=== PATIENT | female | born 1965 | race Caucasian/White ===

== ENCOUNTER 2021-12-19 17:43 | Inpatient (IN) | payer BC, MEDICARE ==
[~2021-12-19] VITALS: Ht 160 cm; Wt 88.6 kg
[~2021-12-19 17:43] MED LIST: AMIT-189 PO; BAC15O TP; CLIN-91 PO; DIAZ5TAB PO; FLUO20CA39 PO; GABA800T11 PO; HYDR-4353 PO; INSULIN REGULAR SQ; LANTUS SQ; Levofloxacin PO; METF-436 PO; METH-603 PO; MSC30T PO
[2021-12-19 19:18] LABS: BASOPHILS % (AUTO) 0.2 % (0-1); EOSINOPHILS % (AUTO) 0.6 % (0-6); HEMATOCRIT 31.2 % (35.0-45.0); HEMOGLOBIN 9.5 g/dl (12.0-16.0); LYMPHOCYTES # (AUTO) 1.6 X10'3 (1.1-4.8); LYMPHOCYTES % (AUTO) 19.2 % (21-51); MEAN CORPUSCULAR HEMOGLOBIN 19.5 PG (27.0-31.0); MEAN CORPUSCULAR HGB CONC 30.5 g/dL (33.0-36.5); MEAN PLATELET VOLUME 6.9 FL (7.4-10.4); MONOCYTES # (AUTO) 0.6 X10'3 (0-0.9); MONOCYTES % (AUTO) 7.2 % (2-12); NEUTROPHILS # (AUTO) 5.9 X10'3 (1.8-7.7); NEUTROPHILS % (AUTO) 72.8 % (42-75); PLATELET COUNT 362 X10'3 (140-440); RED BLOOD COUNT 4.88 X10'6 (4.20-5.60); WHITE BLOOD COUNT 8.1 X10'3 (4.5-11.0)
[2021-12-19 19:32] LABS: ALANINE AMINOTRANSFERASE 17 U/L (12-78); ALBUMIN 3.2 G/DL (3.4-5.0); ALBUMIN/GLOBULIN RATIO 0.6 (1.1-1.5); ALKALINE PHOSPHATASE 142 IU/L (46-116); ANION GAP 11 (8-16); ASPARTATE AMINO TRANSFERASE 8 U/L (10-37); BILIRUBIN,TOTAL 0.2 MG/DL (0.1-1.0); BLOOD UREA NITROGEN 15 MG/DL (7-18); BUN/CREATININE RATIO 25.4 (6.6-38.0); CHLORIDE 101 MMOL/L (99-107); CREATININE 0.59 MG/DL (0.40-0.90); GLUCOSE 256 MG/DL (70-104); POTASSIUM 4.2 MMOL/L (3.5-5.1); SODIUM 138 MMOL/L (135-145); TOTAL CARBON DIOXIDE 26.3 MMOL/L (24-32); TOTAL PROTEIN 8.4 G/DL (6.4-8.2); eGFR > 90 ML/MIN
[2021-12-19 20:31] LABS: PLATELET ESTIMATE NORMAL
[2021-12-19 20:32] LABS: ANISOCYTOSIS 1+; MICROCYTOSIS 2+
[2021-12-19 20:34] LABS: ELLIPTOCYTES 1+; HYPOCHROMASIA 1+
[2021-12-19] MEDS ORDERED: morphine 4 MG/ML inj SYRINge IV ONE (22:45)
[2021-12-19] MEDS ORDERED: LIDOcaine 1%/PF 5ML 10 MG/ML VIAL IJ ONE (22:50)
[2021-12-20] MEDS ORDERED: vancomycin/NS 1 GM ADD-VANTAGE 250 ML IV ONE (02:00)
[2021-12-20] MEDS ORDERED: cefepime 1GM/NS ADD-VANTAGE 100 ML IV ONE (02:00)
[2021-12-20] MEDS ORDERED: LORazepam 1 MG tablet PO ONE (02:25)
[2021-12-20] MEDS ORDERED: HYDROcodone/acetaminophen 10/325mg tab PO ONE ×2 (02:25→08:50)
--- NOTE | 2021-12-20 02:50 | NUR ---
PO MEDS X2 GIVEN
[2021-12-20] MEDS ORDERED: ondansetron/PF 4mg/2ml inj IV PRN (08:05)
[2021-12-20] MEDS ORDERED: mag hydrox/Alum hydrox/simeth 30ml oral suspension PO PRN (08:05)
[2021-12-20] MEDS ORDERED: potassium CL 10mEq/100ml bag 100 ML IV PRN (08:05)
[2021-12-20] MEDS ORDERED: magnesium Cl slow-release 64mg tablet PO PRN (08:05)
[2021-12-20] MEDS ORDERED: magnesium 4gm in 100ml NS 100 ML IV PRN (08:05)
[2021-12-20] MEDS ORDERED: magnesium hydroxide 30ml (MOM) UD suspension PO PRN (08:05)
[2021-12-20] MEDS ORDERED: acetaminophen 325mg tablet PO PRN (08:05)
[2021-12-20] MEDS ORDERED: POTASSIUM BICARB 20meq eff tab 20 MEQ TABLET.EFF PO PRN ×2 (08:05)
[2021-12-20] MEDS ORDERED: magnesium 2GM in 50ml NS 50 ML IV PRN (08:05)
[2021-12-20 09:12] LABS: MAGNESIUM 1.8 MG/DL (1.5-2.4); POTASSIUM 3.7 MMOL/L (3.5-5.1)
[2021-12-20] MEDS ORDERED: methadone 10mg tablet PO ONE (10:00)
[2021-12-20] MEDS: CefTRIAXone 2gm/NS 100ml IVPB 100 ML IV SCH (10:07)
[2021-12-20] MEDS: normal saline 1000ml 1,000 ML IV SCH ×2 (10:07→20:10)
--- NOTE | 2021-12-20 10:44 | NUR ---
PATIENT BACK TO BED FROM BATHROOM, ABLE TO AMBULATE FROM WHEELCHAIR IN VEGA TO BED INDEPENDENTLY.
--- NOTE | 2021-12-20 10:48 | NUR ---
PATIENT IN BED YELLING, CRYING, STATING "IT HURTS", PAGE SENT TO DR HUANG.
[2021-12-20] MEDS ORDERED: morphine 2 MG/ML inj. syringe IV PRN (11:00)
[2021-12-20] MEDS ORDERED: FLUO40CA PO (12:41)
[2021-12-20] MEDS ORDERED: IBUP-1986 PO (12:45)
[2021-12-20] MEDS ORDERED: LORA-269 PO (12:45)
[2021-12-20] MEDS ORDERED: ONDA8TAB13 PO (12:45)
[2021-12-20] MEDS ORDERED: DOXY-1 PO (12:45)
[2021-12-20] MEDS ORDERED: PHEN37.58 PO (12:45)
[2021-12-20] MEDS ORDERED: non-formulary drug (Ondansetron 8mg ODT*** (Ondansetron Odt) 1 TAB) PO PRN (13:10)
[2021-12-20] MEDS: gabapentin 400mg capsule PO SCH ×3 (15:33→20:35)
[2021-12-20] MEDS: vancomycin/NS 1 GM ADD-VANTAGE 250 ML IV SCH (15:34)
[2021-12-20] MEDS ORDERED: methadone 10mg tablet PO SCH (17:00)
[2021-12-20] MEDS: ibuprofen tablet 400 MG TABLET PO SCH (17:30)
[2021-12-20] MEDS: K and/or MAG REPLACEMENT MC SCH (20:00)
[2021-12-20] MEDS: metFORMIN 500mg tablet PO SCH (20:34)
[2021-12-20] MEDS: docusate sod 100mg capsule PO SCH (20:35)
[2021-12-20 22:00] VITALS: BP 144/62
[2021-12-21] MEDS: vancomycin/NS 1 GM ADD-VANTAGE 250 ML IV SCH (02:39)
[2021-12-21 06:00] VITALS: BP 134/53
[2021-12-21 06:36] LABS: ALBUMIN 2.5 G/DL (3.4-5.0); ANION GAP 9 (8-16); BLOOD UREA NITROGEN 10 MG/DL (7-18); BUN/CREATININE RATIO 21.3 (6.6-38.0); CALCIUM 8.6 MG/DL (8.5-10.1); CHLORIDE 105 MMOL/L (99-107); CREATININE 0.47 MG/DL (0.40-0.90); GLUCOSE 185 MG/DL (70-104); MAGNESIUM 1.7 MG/DL (1.5-2.4); POTASSIUM 3.9 MMOL/L (3.5-5.1); SODIUM 139 MMOL/L (135-145); TOTAL CARBON DIOXIDE 25.5 MMOL/L (24-32); eGFR > 90 ML/MIN
[2021-12-21 06:37] LABS: BASOPHILS % (AUTO) 0.4 % (0-1); EOSINOPHILS # (AUTO) 0.1 X10'3 (0-0.9); EOSINOPHILS % (AUTO) 1.8 % (0-6); HEMATOCRIT 25.7 % (35.0-45.0); HEMOGLOBIN 7.8 g/dl (12.0-16.0); LYMPHOCYTES % (AUTO) 22.5 % (21-51); MEAN CORPUSCULAR HEMOGLOBIN 18.9 PG (27.0-31.0); MEAN CORPUSCULAR HGB CONC 30.2 g/dL (33.0-36.5); MEAN CORPUSCULAR VOLUME 62.7 FL (78-98); MEAN PLATELET VOLUME 6.6 FL (7.4-10.4); MONOCYTES # (AUTO) 0.4 X10'3 (0-0.9); MONOCYTES % (AUTO) 9.5 % (2-12); NEUTROPHILS % (AUTO) 65.8 % (42-75); PLATELET COUNT 260 X10'3 (140-440); RED BLOOD COUNT 4.09 X10'6 (4.20-5.60); RED CELL DISTRIBUTION WIDTH 17.7 % (11.5-14.5); WHITE BLOOD COUNT 4.5 X10'3 (4.5-11.0)
--- NOTE | 2021-12-21 06:50 | NUR ---
Problems reprioritized. Patient report given, questions answered & plan of care reviewed with ILDA WILSON.
[2021-12-21 07:00] LABS: HEMOGLOBIN A1C 7.8 % (4.5-6.2)
[2021-12-21] MEDS: PHENTERMINE 37.5 MG PO SCH (08:00)
[2021-12-21] MEDS: K and/or MAG REPLACEMENT MC SCH ×2 (08:00→20:00)
[2021-12-21] MEDS: methadone 10mg tablet PO SCH (08:15)
[2021-12-21] MEDS: FLUoxetine 20mg capsule PO SCH (08:16)
[2021-12-21] MEDS: ibuprofen tablet 400 MG TABLET PO SCH ×2 (08:16→18:41)
[2021-12-21] MEDS: gabapentin 400mg capsule PO SCH ×4 (08:16→20:04)
[2021-12-21] MEDS: metFORMIN 500mg tablet PO SCH ×2 (08:16→20:03)
[2021-12-21] MEDS: docusate sod 100mg capsule PO SCH ×2 (08:17→20:03)
[2021-12-21] MEDS: enoxaparin 40mg/0.4ml syringe SUBCUT SCH (08:18)
[2021-12-21] MEDS: normal saline 1000ml 1,000 ML IV SCH ×2 (09:08→14:05)
[2021-12-21] MEDS: CefTRIAXone 2gm/NS 100ml IVPB 100 ML IV SCH (09:14)
[2021-12-21] MEDS ORDERED: DEXTROSE 15 GM of carb/4 tabs (each vial/BOTTLE has 4 tablets) PO PRN ×2 (09:35)
[2021-12-21] MEDS ORDERED: dextrose 50%-water 50ml dispensing syringe IV PRN ×2 (09:35)
[2021-12-21] MEDS ORDERED: glucagon, human recombinant 1mg kit SUBCUT PRN (09:35)
[2021-12-21] MEDS ORDERED: LORazepam 1 MG tablet PO PRN (09:35)
[2021-12-21] MEDS ORDERED: MESSAGE TO PHARMACY PO ONE (09:35)
[2021-12-21 10:00] VITALS: BP 130/60
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
[2021-12-21] MEDS ORDERED: MESSAGE TO NURSING IV SCH (14:30)
[2021-12-21] MEDS ORDERED: vitamin A & D ointment-NF 1 APPLIC TUBE TP PRN (15:05)
[2021-12-21 18:00] VITALS: BP 146/72
--- NOTE | 2021-12-21 18:09 | NUR ---
PICC NURSE NOT AVAILABLE TODAY, PAGE IN THE AM. Addendum: 12/21/21 at 1810 by Julissa Oneill RN Amended: Links added.
[2021-12-21] MEDS: vancomycin 1,500 MG in NS 300ml IV soln IV SCH (18:28)
--- NOTE | 2021-12-21 18:32 | NUR ---
REPORT TO TYLER GONSALES
[2021-12-21] MEDS: insulin glargine (Lantus) pen - multi-dose SQ SCH (21:00)
[2021-12-21 22:00] VITALS: BP 153/67
[2021-12-21] MEDS: LORazepam 1 MG tablet PO PRN (22:27)
[2021-12-21] MEDS ORDERED: bisacodyl 10mg suppository rectal RC PRN (23:10)
[2021-12-22] MEDS: normal saline 1000ml 1,000 ML IV SCH ×3 (00:05→20:28)
[2021-12-22] MEDS: vancomycin 1,500 MG in NS 300ml IV soln IV SCH ×2 (04:05→16:29)
[2021-12-22 06:00] VITALS: BP 131/48
[2021-12-22 06:04] LABS: BASOPHILS % (AUTO) 0.5 % (0-1); EOSINOPHILS # (AUTO) 0.1 X10'3 (0-0.9); EOSINOPHILS % (AUTO) 1.9 % (0-6); HEMATOCRIT 24.8 % (35.0-45.0); HEMOGLOBIN 7.4 g/dl (12.0-16.0); LYMPHOCYTES # (AUTO) 0.7 X10'3 (1.1-4.8); MEAN CORPUSCULAR HEMOGLOBIN 18.9 PG (27.0-31.0); MEAN CORPUSCULAR HGB CONC 29.9 g/dL (33.0-36.5); MEAN CORPUSCULAR VOLUME 63.3 FL (78-98); MEAN PLATELET VOLUME 6.6 FL (7.4-10.4); MONOCYTES # (AUTO) 0.3 X10'3 (0-0.9); MONOCYTES % (AUTO) 12.2 % (2-12); NEUTROPHILS # (AUTO) 1.7 X10'3 (1.8-7.7); NEUTROPHILS % (AUTO) 60.4 % (42-75); PLATELET COUNT 237 X10'3 (140-440); RED BLOOD COUNT 3.92 X10'6 (4.20-5.60); RED CELL DISTRIBUTION WIDTH 17.7 % (11.5-14.5); WHITE BLOOD COUNT 2.8 X10'3 (4.5-11.0)
[2021-12-22 06:15] LABS: ALBUMIN 2.3 G/DL (3.4-5.0); ANION GAP 4 (8-16); BLOOD UREA NITROGEN 10 MG/DL (7-18); BUN/CREATININE RATIO 18.5 (6.6-38.0); CHLORIDE 107 MMOL/L (99-107); CREATININE 0.54 MG/DL (0.40-0.90); GLUCOSE 241 MG/DL (70-104); MAGNESIUM 1.6 MG/DL (1.5-2.4); SODIUM 139 MMOL/L (135-145); TOTAL CARBON DIOXIDE 28.5 MMOL/L (24-32); eGFR > 90 ML/MIN
[2021-12-22 06:42] LABS: PLATELET ESTIMATE NORMAL; TOTAL CELLS COUNTED 100
[2021-12-22 06:43] LABS: ANISOCYTOSIS 1+; MICROCYTOSIS 1+
--- NOTE | 2021-12-22 07:05 | NUR ---
Patient in room ORTHO 4009. I have received report from ILDA Miller and had the opportunity to ask questions and assume patient care.
[2021-12-22] MEDS: ondansetron 4mg rapidly disintigrating tab PO PRN ×2 (07:45→21:20)
[2021-12-22] MEDS: PHENTERMINE 37.5 MG PO SCH (08:00)
[2021-12-22] MEDS: K and/or MAG REPLACEMENT MC SCH ×2 (08:00→20:00)
[2021-12-22] MEDS: methadone 10mg tablet PO SCH (08:51)
[2021-12-22] MEDS: FLUoxetine 20mg capsule PO SCH (08:52)
[2021-12-22] MEDS: ibuprofen tablet 400 MG TABLET PO SCH ×2 (08:52→16:29)
[2021-12-22] MEDS: CefTRIAXone 2gm/NS 100ml IVPB 100 ML IV SCH (08:52)
[2021-12-22] MEDS: gabapentin 400mg capsule PO SCH ×4 (08:52→20:26)
[2021-12-22] MEDS: docusate sod 100mg capsule PO SCH ×2 (08:52→20:26)
[2021-12-22] MEDS: metFORMIN 500mg tablet PO SCH ×2 (08:52→20:00)
[2021-12-22] MEDS: enoxaparin 40mg/0.4ml syringe SUBCUT SCH (08:53)
--- NOTE | 2021-12-22 09:12 | NUR ---
F/u 12/22: Pt has L gerber abscess otherwise skin intact per [facility] note. Will monitor for nutrition intervention needs. Addendum: 12/22/21 at [address] Amended: Links added.
--- NOTE | 2021-12-22 09:19 | NUR ---
PICC NOTE: Spoke with Eliza bedside RN for the patient who stated that the patient is anticipated to go home on IV ABX and at this time she has a working IV that is sufficient for her needs during this stay. Patient will not be discharged today therefore we will hold off on PICC placement for today due to limited availability of PICC coverage. Informed the nurse to please page/call if there needs change throughout the course of the day.
[2021-12-22 10:00] VITALS: BP 141/63
[2021-12-22] MEDS: LORazepam 1 MG tablet PO PRN ×2 (10:28→22:51)
[2021-12-22] MEDS: insulin Lispro (HumaLOG) vial - multi-dose SQ SCH (13:17)
--- NOTE | 2021-12-22 15:40 | NUR ---
Wound care provided as prescribed. The wound had purulent drainage and it was packed and dressed as indicated.
[2021-12-22 18:00] VITALS: BP 152/80
--- NOTE | 2021-12-22 18:47 | NUR ---
Problems reprioritized. Patient report given, questions answered & plan of care reviewed with ILDA Miller.
[2021-12-22 22:00] VITALS: BP 158/52
--- NOTE | 2021-12-22 23:00 | NUR ---
Did not check pm glu until 2300 because pt ordered food for a late dinner from [employer] and wanted to space out the accu-check a bit from the meal.
[2021-12-22] MEDS: insulin glargine (Lantus) pen - multi-dose SQ SCH (23:28)
--- NOTE | 2021-12-23 | NUR ---
Pt pm accu-check was 254. She has met protocol. Pt declined her metformin and the 1u of short acting insulin. She received the long acting lantus. Will monitor and tell day RN to talk to Dr flores:metformin use vs insulin protocol.
[2021-12-23] MEDS: MESSAGE TO NURSING IV SCH (03:30)
[2021-12-23] MEDS: vancomycin 1,500 MG in NS 300ml IV soln IV SCH (03:58)
[2021-12-23 04:01] LABS: BASOPHILS % (AUTO) 0.2 % (0-1); EOSINOPHILS # (AUTO) 0.1 X10'3 (0-0.9); EOSINOPHILS % (AUTO) 2.2 % (0-6); HEMOGLOBIN 7.1 g/dl (12.0-16.0); LYMPHOCYTES # (AUTO) 1.2 X10'3 (1.1-4.8); MEAN CORPUSCULAR HEMOGLOBIN 18.8 PG (27.0-31.0); MEAN CORPUSCULAR HGB CONC 29.8 g/dL (33.0-36.5); MEAN CORPUSCULAR VOLUME 63.2 FL (78-98); MEAN PLATELET VOLUME 6.5 FL (7.4-10.4); MONOCYTES # (AUTO) 0.3 X10'3 (0-0.9); MONOCYTES % (AUTO) 10.3 % (2-12); NEUTROPHILS # (AUTO) 1.4 X10'3 (1.8-7.7); NEUTROPHILS % (AUTO) 48.3 % (42-75); PLATELET COUNT 232 X10'3 (140-440); RED CELL DISTRIBUTION WIDTH 17.8 % (11.5-14.5)
[2021-12-23 04:11] LABS: ALBUMIN 2.4 G/DL (3.4-5.0); ANION GAP 6 (8-16); BLOOD UREA NITROGEN 8 MG/DL (7-18); CALCIUM 8.5 MG/DL (8.5-10.1); CHLORIDE 108 MMOL/L (99-107); GLUCOSE 206 MG/DL (70-104); MAGNESIUM 1.7 MG/DL (1.5-2.4); POTASSIUM 4.1 MMOL/L (3.5-5.1); SODIUM 142 MMOL/L (135-145); VANCOMYCIN,TROUGH 12.5 UG/ML (6.0-14.0); eGFR > 90 ML/MIN
[2021-12-23 05:56] LABS: PLATELET ESTIMATE NORMAL
[2021-12-23 05:57] LABS: ANISOCYTOSIS 1+; ELLIPTOCYTES FEW; MICROCYTOSIS 2+
[2021-12-23 06:00] VITALS: BP 170/69
--- NOTE | 2021-12-23 06:34 | NUR ---
Patient in room ORTHO 4009. I have received report from ILDA Miller and had the opportunity to ask questions and assume patient care.
--- NOTE | 2021-12-23 07:15 | NUR ---
rechecked the patient's blood pressure BP 156/77, HR 64
[2021-12-23] MEDS: normal saline 1000ml 1,000 ML IV SCH (07:17)
[2021-12-23] MEDS: gabapentin 400mg capsule PO SCH ×4 (07:18→20:20)
[2021-12-23] MEDS: methadone 10mg tablet PO SCH (07:18)
[2021-12-23] MEDS: ibuprofen tablet 400 MG TABLET PO SCH ×2 (07:18→17:20)
[2021-12-23] MEDS: docusate sod 100mg capsule PO SCH ×2 (07:18→20:19)
[2021-12-23] MEDS: FLUoxetine 20mg capsule PO SCH (07:19)
[2021-12-23] MEDS: CefTRIAXone 2gm/NS 100ml IVPB 100 ML IV SCH (07:19)
[2021-12-23] MEDS: enoxaparin 40mg/0.4ml syringe SUBCUT SCH (07:19)
[2021-12-23] MEDS: K and/or MAG REPLACEMENT MC SCH ×2 (08:00→19:18)
--- NOTE | 2021-12-23 08:35 | NUR ---
Confirmed with PICC nurse that the patient is on the schedule today for PICC line insertion.
[2021-12-23] MEDS: insulin Lispro (HumaLOG) vial - multi-dose SQ SCH ×3 (09:51→19:12)
[2021-12-23 10:00] VITALS: BP 157/59
[2021-12-23] MEDS: LORazepam 1 MG tablet PO PRN (11:10)
--- NOTE | 2021-12-23 12:00 | NUR ---
Yuli with wound care indicated that wound pictures should be taken prior to discharge of patient. Will notify service worker nurse to take pictures when she changes the dressing.
--- NOTE | 2021-12-23 12:00 | NUR ---
talia from Wound Care reiterated that patient will need to be discharged with wound care.
[2021-12-23] MEDS: VANCOmycin 1250MG/NS 250ml Bag 250 ML IV SCH ×2 (12:20→19:18)
[2021-12-23 14:00] VITALS: BP 125/42
[2021-12-23 18:00] VITALS: BP 150/70
--- NOTE | 2021-12-23 18:32 | NUR ---
Problems reprioritized. Patient report given, questions answered & plan of care reviewed with ILDA Rider.
--- NOTE | 2021-12-23 19:02 | NUR ---
Patient in room ORTHO 4009. I have received report from ILDA Kay and had the opportunity to ask questions and assume patient care.
[2021-12-23] MEDS ORDERED: acetaminophen 325mg tablet PO PRN (19:10)
[2021-12-23 22:00] VITALS: BP 136/57
[2021-12-23] MEDS: insulin glargine (Lantus) pen - multi-dose SQ SCH (22:15)
[2021-12-24] MEDS: LORazepam 1 MG tablet PO PRN ×2 (00:04→11:57)
[2021-12-24] MEDS ORDERED: VANCOMYCIN LEVEL IV ONE (03:30)
[2021-12-24] MEDS: MESSAGE TO NURSING IV SCH (03:30)
[2021-12-24 06:00] VITALS: BP 153/70
--- NOTE | 2021-12-24 06:29 | NUR ---
Problems reprioritized. Patient report given, questions answered & plan of care reviewed with ILDA Kay.
[2021-12-24 06:30] LABS: MEAN CORPUSCULAR HEMOGLOBIN 19.2 PG (27.0-31.0); WHITE BLOOD COUNT 3.6 X10'3 (4.5-11.0)
--- NOTE | 2021-12-24 06:31 | NUR ---
Patient in room ORTHO 4009. I have received report from ILDA Rider and had the opportunity to ask questions and assume patient care.
[2021-12-24 06:34] LABS: BASOPHILS % (AUTO) 0.4 % (0-1); EOSINOPHILS # (AUTO) 0.1 X10'3 (0-0.9); EOSINOPHILS % (AUTO) 1.9 % (0-6); HEMATOCRIT 22.8 % (35.0-45.0); LYMPHOCYTES # (AUTO) 1.3 X10'3 (1.1-4.8); MEAN CORPUSCULAR HGB CONC 30.7 g/dL (33.0-36.5); MEAN CORPUSCULAR VOLUME 62.7 FL (78-98); MEAN PLATELET VOLUME 6.6 FL (7.4-10.4); MONOCYTES # (AUTO) 0.3 X10'3 (0-0.9); MONOCYTES % (AUTO) 8.6 % (2-12); NEUTROPHILS # (AUTO) 1.9 X10'3 (1.8-7.7); NEUTROPHILS % (AUTO) 53.1 % (42-75); PLATELET COUNT 202 X10'3 (140-440); RED BLOOD COUNT 3.64 X10'6 (4.20-5.60); RED CELL DISTRIBUTION WIDTH 17.6 % (11.5-14.5)
--- NOTE | 2021-12-24 06:55 | NUR ---
PAGER ID: [phone] [id number] lab value H&H 7.0 / 22.8.
[2021-12-24 07:16] LABS: PLATELET ESTIMATE NORMAL
[2021-12-24 07:17] LABS: ANISOCYTOSIS 1+; ELLIPTOCYTES FEW; MICROCYTOSIS 2+
[2021-12-24] MEDS: ibuprofen tablet 400 MG TABLET PO SCH ×2 (07:30→17:41)
[2021-12-24] MEDS: methadone 10mg tablet PO SCH (07:30)
[2021-12-24] MEDS: docusate sod 100mg capsule PO SCH ×2 (07:31→20:55)
[2021-12-24] MEDS: gabapentin 400mg capsule PO SCH ×4 (07:31→20:56)
[2021-12-24] MEDS: FLUoxetine 20mg capsule PO SCH (07:31)
[2021-12-24] MEDS: K and/or MAG REPLACEMENT MC SCH ×2 (08:00→20:00)
[2021-12-24] MEDS: insulin Lispro (HumaLOG) vial - multi-dose SQ SCH ×3 (09:43→21:39)
[2021-12-24] MEDS: enoxaparin 40mg/0.4ml syringe SUBCUT SCH (09:53)
[2021-12-24 10:00] VITALS: BP 151/52
--- NOTE | 2021-12-24 10:00 | NUR ---
Hospitalist is aware of Hgb. 7.0 and decided that blood replacement is not needed at this time. Will continue to monitor H&H.
[2021-12-24 14:00] VITALS: BP 139/50
--- NOTE | 2021-12-24 15:53 | NUR ---
Per rn case manager Autumn when discharge orders come in nurse is to call [facility] at [phone] so they can bring in the supplies and educate the patient. Will notify weight shifter nurse as well.
[2021-12-24 18:00] VITALS: BP 151/53
--- NOTE | 2021-12-24 18:30 | NUR ---
Pt. ate dinner from outside ,[employer] ,I can't count how many carbs. she ate.
--- NOTE | 2021-12-24 19:02 | NUR ---
Problems reprioritized. Patient report given, questions answered & plan of care reviewed with ILDA Rider.
--- NOTE | 2021-12-24 19:34 | NUR ---
Patient in room ORTHO 4009. I have received report from ILDA Kay and had the opportunity to ask questions and assume patient care.
[2021-12-24 20:00] VITALS: BP 88/46
[2021-12-24] MEDS: insulin glargine (Lantus) pen - multi-dose SQ SCH (21:28)
[2021-12-24] MEDS: cefazolin/dext.iso 2gm/100ml 100 ML IV SCH (21:57)
[2021-12-24 22:00] VITALS: BP 141/57
[2021-12-25] MEDS: LORazepam 1 MG tablet PO PRN ×2 (00:25→12:27)
[2021-12-25] MEDS: MESSAGE TO NURSING IV SCH (03:30)
[2021-12-25 06:00] VITALS: BP 123/42
[2021-12-25 06:32] LABS: ALBUMIN 2.7 G/DL (3.4-5.0); ANION GAP 5 (8-16); BLOOD UREA NITROGEN 7 MG/DL (7-18); BUN/CREATININE RATIO 15.2 (6.6-38.0); CALCIUM 8.7 MG/DL (8.5-10.1); CHLORIDE 106 MMOL/L (99-107); CREATININE 0.46 MG/DL (0.40-0.90); GLUCOSE 124 MG/DL (70-104); SODIUM 143 MMOL/L (135-145); TOTAL CARBON DIOXIDE 31.7 MMOL/L (24-32); eGFR > 90 ML/MIN
[2021-12-25 06:35] LABS: BASOPHILS % (AUTO) 0.3 % (0-1); EOSINOPHILS # (AUTO) 0.1 X10'3 (0-0.9); EOSINOPHILS % (AUTO) 1.2 % (0-6); HEMATOCRIT 24.5 % (35.0-45.0); HEMOGLOBIN 7.6 g/dl (12.0-16.0); LYMPHOCYTES # (AUTO) 1.8 X10'3 (1.1-4.8); LYMPHOCYTES % (AUTO) 38.8 % (21-51); MEAN CORPUSCULAR HEMOGLOBIN 19.5 PG (27.0-31.0); MEAN CORPUSCULAR HGB CONC 30.9 g/dL (33.0-36.5); MEAN CORPUSCULAR VOLUME 63.1 FL (78-98); MEAN PLATELET VOLUME 6.5 FL (7.4-10.4); MONOCYTES # (AUTO) 0.4 X10'3 (0-0.9); MONOCYTES % (AUTO) 8.7 % (2-12); NEUTROPHILS # (AUTO) 2.4 X10'3 (1.8-7.7); PLATELET COUNT 218 X10'3 (140-440); RED BLOOD COUNT 3.89 X10'6 (4.20-5.60); RED CELL DISTRIBUTION WIDTH 17.9 % (11.5-14.5); WHITE BLOOD COUNT 4.7 X10'3 (4.5-11.0)
--- NOTE | 2021-12-25 06:38 | NUR ---
Problems reprioritized. Patient report given, questions answered & plan of care reviewed with ILDA Kemp.
[2021-12-25] MEDS: K and/or MAG REPLACEMENT MC SCH (07:10)
[2021-12-25] MEDS: gabapentin 400mg capsule PO SCH ×2 (07:17→12:27)
[2021-12-25] MEDS: docusate sod 100mg capsule PO SCH (07:17)
[2021-12-25] MEDS: FLUoxetine 20mg capsule PO SCH (07:18)
[2021-12-25] MEDS: methadone 10mg tablet PO SCH (07:18)
[2021-12-25] MEDS: ibuprofen tablet 400 MG TABLET PO SCH (07:18)
[2021-12-25 07:46] LABS: ANISOCYTOSIS 1+; MICROCYTOSIS 2+; PLATELET ESTIMATE NORMAL; POLYCHROMASIA FEW
[2021-12-25] MEDS: ondansetron 4mg rapidly disintigrating tab PO PRN (08:02)
[2021-12-25] MEDS: enoxaparin 40mg/0.4ml syringe SUBCUT SCH (08:03)
[2021-12-25] MEDS: cefazolin/dext.iso 2gm/100ml 100 ML IV SCH (08:03)
[2021-12-25 09:57] VITALS: BP 130/61
--- NOTE | 2021-12-25 15:45 | NUR ---
Pt discharged home w/ . Wound dressing changed. [facility] nurse came to bedside for teaching and resources of fdc IV antibiotics. Pt and states understanding. All belongings taken from room. PICC line remains due to need for IV abx. Home health and [facility] to follow. No tele, no home meds in pharmacy. Pt appropriate for discharge
== END 2021-12-25 15:45 | disposition home health service (06) | DRG 560 ==
LOC: ER 17:43 → ED HOLD 12-20 08:04 → ORTHO 4S 12-20 19:16
PROVIDERS: ADMIT Family Medicine; ATTEND Family Medicine
PROC: 0Y9J3ZZ Drainage of Left Lower Leg, Percutaneous Approach (ICD-10-PCS; principal; 2021-12-19)
PROC: 02HV33Z Insertion of Infusion Device into Superior Vena Cava, Percutaneous Approach (ICD-10-PCS; 2021-12-23)
PROC: B548ZZA Ultrasonography of Superior Vena Cava, Guidance (ICD-10-PCS; 2021-12-23)
DX: T84.59XA Infection and inflammatory reaction due to other internal joint prosthesis, initial encounter (principal); L03.116 Cellulitis of left lower limb; M86.672 Other chronic osteomyelitis, left ankle and foot; M86.172 Other acute osteomyelitis, left ankle and foot; L02.416 Cutaneous abscess of left lower limb; D63.8 Anemia in other chronic diseases classified elsewhere; E11.42 Type 2 diabetes mellitus with diabetic polyneuropathy; E11.69 Type 2 diabetes mellitus with other specified complication; E66.01 Morbid (severe) obesity due to excess calories; M12.872 Other specific arthropathies, not elsewhere classified, left ankle and foot; F41.9 Anxiety disorder, unspecified; Y83.8 Other surgical procedures as the cause of abnormal reaction of the patient, or of later complication, without mention of misadventure at the time of the procedure; F32.A Depression, unspecified; G89.4 Chronic pain syndrome; L52 Erythema nodosum; Z86.19 Personal history of other infectious and parasitic diseases; Z68.34 Body mass index [BMI] 34.0-34.9, adult; Z79.899 Other long term (current) drug therapy; Z83.3 Family history of diabetes mellitus; Z90.710 Acquired absence of both cervix and uterus; Z90.49 Acquired absence of other specified parts of digestive tract; Z79.4 Long term (current) use of insulin; Z79.2 Long term (current) use of antibiotics; Y92.89 Other specified places as the place of occurrence of the external cause
CPT/HCPCS: 10060; 36415; 36573; 73590; 73700; 80048; 80053; 80202; 82948; 83036; 83605; 83735; 84132; 84145; 85007; 85008; 85025; 85651; 87040; 87070; 87075; 87081; 96365; 99285; C1751; G0378; J0690; J0692; J0696; J1650; J1815; J2270; J3370; J7030; J7040

== ENCOUNTER → 2025-05-31 | Emergency (ER) | payer BC ==
[~2025-05-31] VITALS: Ht 157.5 cm; Wt 109.0 kg
[~2025-05-31] MED LIST changes: -AMIT-189 PO; +AMOX-580 PO; -BAC15O TP; -CLIN-91 PO; -DIAZ5TAB PO; -FLUO20CA39 PO; +FLUO40CA PO; +GABA-1555 PO; -GABA800T11 PO; -HYDR-4353 PO; +IBUP-1986 PO; -INSULIN REGULAR SQ; -LANTUS SQ; +LORA-269 PO; -Levofloxacin PO; -MSC30T PO; +ONDA-245 PO; +PHEN37.58 PO
--- NOTE | 2025-05-31 18:12 | ELECTROCARDIOGRAPH REPORT ---
[facility] Test Date: 2025-05-31 Test Time: 18:10:19 Pat Name: KENTON CURTIS Department: EMERGENCY ROOM Patient ID: [id number] Room: Gender: F Ethernet Network Architect: PM : 1965 Requested By: KELLEN FERRER Order Number: [id number] Reading MD: Dr. Kellen Ferrer Measurements Intervals Girard Rate: 82 P: 45 MT: 189 QRS: -5 QRSD: 101 T: 23 QT: 389 QTc: 455 Interpretive Statements Sinus rhythm Low voltage, precordial leads Borderline T abnormalities, anterior leads Electronically Signed On 06-01-2025 6:13:[address] Kellen Ferrer Please click the below link to view image of tracing.
[2025-05-31 18:30] LABS: MEAN PLATELET VOLUME 7.4 FL (7.4-10.4); RED CELL DISTRIBUTION WIDTH 19.3 % (11.5-14.5)
[2025-05-31 18:47] LABS: CREATININE 0.76 MG/DL (0.40-0.90); PRO BRAIN NATRIURETIC PEPTIDE 649 PG/ML (0-125); TOTAL CARBON DIOXIDE 28.6 MMOL/L (24-32); eCRCL 64 ML/MIN; eGFR 78 ML/MIN
--- NOTE | 2025-05-31 18:49 | RADIOLOGY REPORT ---
EXAM: DI CHEST,SINGLE VIEW HISTORY: CP TECHNIQUE: 1 view of the chest COMPARISON: None FINDINGS/IMPRESSION: LUNGS: No pleural effusion, consolidation, or pneumothorax. Low lung volumes, which cause crowding of the bronchovascular markings. MEDIASTINUM: Mild cardiomegaly BONES: No acute osseous abnormality. OTHER: None.
[2025-05-31 18:58] LABS: PLATELET ESTIMATE NORMAL
--- NOTE | 2025-05-31 19:39 | Physician Documentation ---
History of Present Illness ~ Chief Complaint: Shortness of Breath Stated Complaint: CP Time Seen by MD: 19:11 Primary Medical Doctor: [facility]/ [facility] for wound care Source: patient Mode of Arrival: POV, Ambulatory Exam Limitations: no limitations HPI Presents with shortness for breath and dry cough onset last night. Reports subjective fever but does not have a thermometer home. Denies sore throat. Denies sick contacts. History diabetes and osteomyelitis of her leg on chronic immunosuppressive therapy. States she is currently taking Bactrim. Was asked, but otherwise denies chest pain or pressure. No dizziness, lightheadedness or syncope. Was asked but otherwise denies review of systems. Medication Reconciliation Allergies: Coded Allergies: No Known Allergies (Unverified , 05/31/25) Scheduled Amox Tr/Potassium Clavulanate 875/125 MG (Augmentin 875/125 MG), 1 TAB PO Q12H Fluoxetine Hcl (Fluoxetine Hcl), 1 CAP PO DAILY, (Reported) Gabapentin (Gabapentin), 1 TABLET PO QID, (Reported) Ibuprofen (Ibuprofen), 1 TAB PO BID, (Reported) Metformin Hcl (Metformin Hcl), 1 TABLET PO BID, (Reported) Methadone Hcl* (Dolophine*), 10 MG PO QID, (Reported) Phentermine HCl (Phentermine HCl), 1 TAB PO DAILY, (Reported) Scheduled PRN Lorazepam (Ativan), 1 TAB PO Q12H PRN for anxiety, (Reported) Ondansetron 8mg ODT (Ondansetron Odt), 1 TAB PO BID PRN for nausea/vomiting, (Reported) Past Medical History Past Medical History: Diabetes, *MUSCULOSKELETAL* Past Surgical History: orthopedic surgeries, other Patient History: FH: diabetes mellitus Alcohol Use: None Drug Use: none Lives with: Spouse Lives In: Home Review of Systems All Other Systems at this time: Reviewed and Negative ROS Review of systems negative except documented in HPI. Physical Exam Vital Signs: RN Vital Signs have been reviewed: Yes, Temperature: 97.0, Source: Temporal, Heart Rate: 88, Respiratory Rate: 16, BP: 149/40, Pulse Oximetry: 97, Weight: 109.000 Oxygen Flow Rate: 0 Pulse Oximetry Reflects: adequate oxygenation Physical Exam General: Awake, alert, oriented. No apparent distress Respiratory: Lungs are basilar fine crackles. No wheezing. No rhonchi. No respiratory distress noted. Chest: Normal shape and size. No accessory muscle use. Cardiovascular: Regular rate and rhythm. S1-S2. No murmur, gallop, rub. Gastrointestinal: Abdomen is soft. Nontender to palpation. Bowel sounds present. Extremities: No lower extremity edema, cyanosis or clubbing. Neurologic: Alert and oriented x4. Nonfocal Psychiatric: Normal mood and affect. Skin: Normal color. Warm and dry. Progress Results/Orders Results/Orders Completed Orders - CIARAN MENDOZA LEAVE SPECIALIST Amox Tr/Potassium Clavulanate (Augmentin (05/31/25 19:35) Medications Received in ER Medications (Trade) Dose Ordered Sig/Wilfrido Route PRN Reason Start Time Stop Time Status Last Admin Dose Admin (Augmentin 875-125mg tablet) 1 tab ONCE ONCE PO 05/31/25 19:35 05/31/25 19:37 DC 05/31/25 20:11 1 TAB Vital Signs 05/31/25 05/31/25 05/31/25 05/31/25 18:13 19:18 20:35 21:11 Temp 97.0 97.0 97.0 Pulse 88 62 65 Resp 16 16 14 11 B/P (MAP) 149/40 95/46 (62) 95/46 Pulse Ox 97 97 94 O2 Flow Rate 0 0 Laboratory Tests Test 05/31/25 18:19 05/31/25 20:09 White Blood Count 13.3 H Red Blood Count 4.02 L Hemoglobin 9.4 L Hematocrit 29.2 L Mean Corpuscular Volume 72.6 L Mean Corpuscular Hemoglobin 23.3 L Mean Corpuscular Hemoglobin Concent 32.1 L Red Cell Distribution Width 19.3 H Platelet Count 173 Mean Platelet Volume 7.4 Neutrophils (%) (Auto) 80.0 H Lymphocytes (%) (Auto) 13.6 L Monocytes (%) (Auto) 5.9 Eosinophils (%) (Auto) 0.3 Basophils (%) (Auto) 0.2 Neutrophils # (Auto) 10.7 H Lymphocytes # (Auto) 1.8 Monocytes # (Auto) 0.8 Eosinophils # (Auto) 0.0 Basophils # (Auto) 0.0 CBC Comment Platelet Estimate Normal Red Blood Cell Morphology Perf Basophilic Stippling Anisocytosis 2+ Microcytosis 1+ Sodium Level 137 Potassium Level 4.0 Chloride Level 101 Carbon Dioxide Level 28.6 Anion Gap 7 L Blood Urea Nitrogen 12 Creatinine 0.76 Estimated GFR/1.73 m2 78 BUN/Creatinine Ratio 15.8 Glucose Level 125 H Calcium Level 8.3 L Troponin I High Sensitivity 6 4 Pro-B-Type Natriuretic Peptide 649 H Albumin 3.0 L Chemistry Comments Troponin I High Sens Percent Delta 33 Troponin I Hi Sens Absolute Change -2 EKG/XRAY/CT/US/VASC/MRI EKG : Intepreting Monitor?: Yes Indication: shortness of breath EKG: NSR EKG Blocks: none Gloster: normal Hypertrophy: none Additional Comment CT interpreted by me. Shows sinus rhythm. Left axis deviation. Otherwise, nonspecific ST-T change Medical Decision Making Additional information obtaine: old records Findings Presents secondary to cough and shortness for breath onset today. She is on chronic immunosuppressant therapy secondary to osteomyelitis. Chest x-ray is concerning for pneumonia. She has had pneumonia in the past. Considered URI/viral etiologies. While she may have underlying COVID versus flu given subjective fevers treatment is supportive and therefore there was no further testing initiated for these conditions. She isn't hypoxic. Her vital signs are stable. Therefore, being discharged home on oral antibiotics. She was given Augmentin with 1st dose in the emergency department. Warning signs and symptoms were reviewed. Considered other etiologies of shortness for breath such as ACS. She does not have any chest pain or pressure. Troponin negative x2. EKG without acute ST changes. Low clinical suspicion for acute coronary syndrome being the underlying etiology. Considered pulmonary embolism. She is not tachycardic. No risk factors for PE this is recent long travel, DVT. No evidence of aortic dissection by history and exam. The case was discussed with the attending physician, Zen. The plan of care, diagnostic evaluation and medical decision making were discussed. The attending physician was available for consultation, where the diagnostic findings as well as the eventual disposition. Heart Score: 2 Differential Dx:Considerations: Include: asthma, bronchitis, cardiogenic shock, CHF, COPD Departure Time of Disposition: 20:59 Disposition: 01 HOME / SELF CARE / HOMELESS Impression: Primary Impression: Pneumonia Qualified Codes: J18.9 - Pneumonia, unspecified organism Condition: Stable Discharge Instructions: Community-Acquired Pneumonia, Adult Additional Instructions: Chest x-ray showed signs and symptoms suspicious for pneumonia. Given your symptoms I have started you on antibiotics for this. Please take your antibiotics to completion. Return for new or worsening symptoms. Referrals: NO PRIMARY CARE PROVIDER (PCP) Prescriptions Amox Tr/Potassium Clavulanate 875/125 MG (Augmentin 875/125 MG) 875 Mg-125 Mg Tablet 1 TAB PO Q12H for 10 Days, #20 TAB Prov: CIARAN MENDOZA NP 05/31/25 Education Educated: Patient Educated regarding: diagnosis, treatment, need for follow up Signature Scribe Signature: no scribe Attestation: The note accurately reflects work and decisions made by me.Ciaran Mendoza - ESTEBAN 05/31/25 22:20 This note was created with the assistance of voice recognition software whereby errors in grammar, syntax, and/or spelling may have occurred despite active proofreading efforts by the author. Please do not hesitate to contact the provider for clarification or for questions regarding the content of this document. CIARAN MENDOZA NP May 31, 2025 19:39
[2025-05-31] MEDS: amox tr/potassium clavulanate 875/125mg TAB PO ONE (20:11)
[2025-05-31 21:11] VITALS: BP 95/46; PULSE 65; RESP 11; TEMP 97; O2SAT 94
== END | disposition home or self-care (01) ==
LOC: ER 18:08
DX: J18.9 Pneumonia, unspecified organism (principal); E11.9 Type 2 diabetes mellitus without complications; Z79.899 Other long term (current) drug therapy; Z79.84 Long term (current) use of oral hypoglycemic drugs; Z98.890 Other specified postprocedural states
CPT/HCPCS: 36415; 71045; 80048; 83880; 84484; 85008; 85025; 93005; 99285